=== PATIENT | male | born 1975 | race Caucasian/White ===

== ENCOUNTER 2024-12-13 10:07 | Emergency (ER) | payer OTHER, SELFPAY ==
[2024-12-13 10:10] VITALS: BP 145/93; PULSE 86; RESP 18; TEMP 36.4; O2SAT 98; BMI 33.1
--- NOTE | 2024-12-13 10:31 | ED.GENADULT ---
HPI - General Adult General Chief complaint: Lower Extremity Swelling Stated complaint: swelling left knee Time Seen by Provider: 12/13/24 10:17 History of Present Illness HPI narrative: Patient is a 49-year-old gentleman who comes in today with a 1 day history of a red swollen left knee. He has had no fevers no chills no night sweats. He Has history of gout in the past. Patient has had no recent injuries to his left knee no skin breakdown. He was initially seen in urgent care was sent over for further evaluation. Patient has no symptoms in the right knee and has had no previous pathology in either knee. Pain is moderate and located in the lateral aspect of the left knee.. Related Data Home Medications ?Medication ?Instructions ?Recorded ?Confirmed bupropion HCl 150 mg 24 hr tablet, 150 mg PO DAILY 12/13/24 12/13/24 extended release omeprazole 20 mg capsule,delayed 20 mg PO DAILY 12/13/24 12/13/24 release Allergies Allergy/AdvReac Type Severity Reaction Status Date / Time No Known Drug Allergies Allergy Verified 12/13/24 10:15 Review of Systems Status of ROS: Reports: 10 or more systems reviewed and unremarkable except as noted in History and below Exam Narrative: Exam Narrative: EXAM GENERAL: Patient appears comfortable and well. EYES: No scleral icterus. LYMPH: No supraclavicular or cervical lymphadenopathy. SKIN: Visible skin seen during exam normal or with benign process only. EXT: Mildly swollen warm left knee with no erythema no skin breakdown. Mild effusion noted. HEART: Regular rate and rhythm with no murmurs, rubs, or gallops. LUNGS: Clear to auscultation bilaterally with no crackles or wheezes. ABD: Soft, non tender, non distended. PSYCH: Good eye contact, speech is not pressured. Const: Vital Signs, click to edit/add: Vital Signs - 24 hr 12/13/24 10:10 Temperature 97.6 F Pulse Rate [Pulse Oximeter] 86 Respiratory Rate 18 Blood Pressure [Ri ght Upper Arm] 145/93 H Pulse Oximetry 98 Oxygen Delivery Me thod Room Air Course Vital Signs Vital signs: Initial Vital Signs Temperature 97.6 F 12/13/24 10:10 Temperature Source Temporal Artery Scan 12/13/24 10:10 Pulse Rate 86 12/13/24 10:10 Respiratory Rate 18 12/13/24 10:10 Blood Pressure 145/93 H 12/13/24 10:10 Blood Pressure Mean 110 H 12/13/24 10:10 Blood Pressure Position Sitting 12/13/24 10:10 Pulse Oximetry 98 12/13/24 10:10 Oxygen Delivery Method Room Air 12/13/24 10:10 Vital Signs Temperature 97.6 F 12/13/24 10:10 Pulse Rate 86 12/13/24 10:10 Respiratory Rate 18 12/13/24 10:10 Blood Pressure 145/93 H 12/13/24 10:10 Pulse Oximetry 98 12/13/24 10:10 Oxygen Delivery Method Room Air 12/13/24 10:10 Temperature 97.6 F 12/13/24 10:10 Pulse Rate 86 12/13/24 10:10 Respiratory Rate 18 12/13/24 10:10 Blood Pressure 145/93 H 12/13/24 10:10 Pulse Oximetry 98 12/13/24 10:10 Oxygen Delivery Method Room Air 12/13/24 10:10 Medical Decision Making MDM Narrative Medical decision making narrative: Patient presents with a monoarthritis of the left knee. No signs of systemic infection. I did perform a joint aspiration after explaining the risks and benefits. There was no fluid that we were able to aspirate. I did hold pressure on the puncture site on the lateral aspect of the left knee. I a than bandage the puncture site. This time is unclear whether he has infection versus gout or other cause of monoarthritis. I did treated with with Keflex and prednisone for the next 5-7 days. I recommended ice and follow-up with his primary physician as needed. Discharge Plan Discharge Clinical Impression: Monoarthritis Patient Disposition: Home, Self-Care Condition: Stable Instructions: Knee Pain (ED) Additional Instructions: Ice Prednisone as directed Keflex as directed Follow-up with your doctor as needed Continue change the bandages on puncture site as needed. Activity Level: No Restrictions Discharge Diet: Regular Prescriptions: No Action omeprazole 20 mg capsule,delayed release(DR/EC) 20 mg PO DAILY bupropion HCl 150 mg tablet extended release 24 hr 150 mg PO DAILY Follow Up/Referrals: DARI CLAY DO [Primary Care Provider] - Stand Alone Forms: [facility] Info Instructions
--- OUTSIDE RECORDS SUMMARY | 2024-12-14 17:22 | XMS_ITS | Clinical Summary ---
Author Organization [employer] [facility] Address [address] [place] [address] Care Team Providers Care Psychology Department Chair Name Role Phone Susana Herbert DO Primary Care Provider [phone] Allergies No known active allergies Medications omeprazole (PRILOSEC) 20 mg Delayed-Release capsuleIndicatio ns:Eosinophilic esophagitis Take 1 Capsule (20 mg) by mouth once daily before a meal. 90 Capsule 3 05/30/2024 Active buPROPion (WELLBUTRIN XL) 300 mg Extended-Release tabletIndication s:Recurrent major depression in partial remission Take 1 Tablet (300 mg) by mouth once daily. 90 Tablet 3 05/30/2024 Active Active Problems Problem Noted Date Diagnosed Date Prediabetes 06/04/2023 Obesity, Class II, BMI 35-39.9 09/19/2017 ESEQUIEL 11/21/2004 AHI- 29 10/28/2015 Mixed hyperlipidemia 03/20/2012 Eosinophilic esophagitis 12/07/2009 Overview (12/07/2009): EGD 11/2008 eosinophil esophagitis Depression 08/18/2009 Anxiety 09/10/2007 Encounters Date Type Department Care Team Description 11/17/2024 8:30 AM CDT Office Visit [facility] [address] [place] [address] Rupa Steward, [facility] Mental Health Intake 11/17/2024 Travel 10/14/2024 12:30 PM CDT Office Visit [facility] [address] [place] [address] Keesha Bright, [facility] Mental Health Consultants Visit 10/13/2024 Travel from Last 3 Months Immunizations Immunization Administration Dates Next Due AMB Influenza, IIV3 (Age >=3 years)(Flu Clinic Only) 06/15/2011 COVID-19 VACCINE SPIKEVAX (M ODERNA 50MCG/0.5ML) 12YO+ PFS 05/30/2024,06/04/2023 COVID-19 vaccine (Moderna 100mcg/0.5mL) PF, MDV 12/23/2020,11/18/2020 COVID-19 vaccine (Moderna Aleksandr sugey 50mcg/0.25mL) PF, MDV 08/23/2021 COVID-19 vaccine (Pfizer-Bio NTech 30mcg/0.3mL) 12YO+ BIVALENT PF, MDV 04/25/2022 INFLUENZA, IIV3 PF (AGE >= 6 MO) 05/30/2024 Influenza A (H1N1), Inactivated 07/30/2009,06/04 Influenza, IIV3 (Age 6-35 mos) 05/22/2013,2010 Influenza, IIV3 (Age >=3 years) 05/06/2019,04/13 Influenza, IIV4 06/04/2023,,08/10/2021,2018,04/30/2014 Tdap 05/30/2024,04/08/2014,03/11/2010 Family History Medical History Relation Name Comments Heart Disease Father MA - born [birth year] Diabetes Maternal Grandfather Diabetes Maternal Uncle Other Mother overwt - born 1 [birth year] Other Other negative for de pression Relation Name Status Comments Father Maternal Grandfather Maternal Uncle Mother Other Social History Tobacco Use Types Packs/Day Years Used Date Smoking Tobacco: Never Smokeless Tobacco: Never Tobacco Cessation:Counseling Given: Yes Alcohol Use Standard Drinks/Week Comments Yes 3 (1 standard drink = 0.6 oz pur e alcohol) once a week PHQ-2 Answer Date Recorded PHQ-2 TOTAL SCORE 2 11/17/2024 Social Connections Answer Date Recorded Do you often feel lonely or isolated from those around you? 0 05/30/2024 Financial Resource Strain Answer Date R ecorded Difficulty of Paying Living Expenses 3 05/30/2024 Difficulty of Paying Living Expenses Not on file 05/30/2024 Food Insecurity Answer Date Recorded Do you worry your food will run out before you are able to buy more? 1 05/30/2024 Transportation Needs Answer Date Record ed Does lack of transportation keep you from medica l appointments? 1 05/30/2024 Does lack of transportation keep you from work, meetings or getting things that you need? 1 05/30/2024 Housing Stability Answer Date Recorded What is your housing situation today? 1 05/30/2024 Utilities Answer Date Recorded Do you have trouble paying f or utilities (for example, heat, electricity, water, phone)? 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 Not on file Not on f ile Obstetrics History Last Filed Vital Signs Vital Sign Reading Time Taken Comments Blood Pressure 139/93 05/30/2024 8:12 AM CDT Pulse 72 05/30/2024 7:29 AM CDT Temperature 36.8 C (98.2 F) 02/26/2020 11:35 AM CDT Respiratory Rate 16 09/06/2022 8:40 AM CUFF SLITTER Oxygen Saturation 98% 05/30/2024 7:29 AM CDT Inhaled Oxygen Concentration - - Weight 101 kg (222 lb 11.2 oz) 05/30/2024 7:29 A M CDT Height 182.4 cm (5' 11.81) 05/30/2024 7:29 AM C DT Body Mass Index 30.36 05/30/2024 7:29 AM CDT Plan of Treatment Health Maintenance Due Date Last Done Comments BMI (ht and wt on same day) for age 18+ 05/30/2025 05/30/2024, 06/04/2023, 05/18/2022, Additional history exists Depression screening for age 12+ 11/17/2025 11/17/2024 Lipids for age 45-75 05/30/2029 05/30/2024, 06/04/2023, 05/18/2022, Additional history exists Colonoscopy through age 75 09/06/203209/06, 09/06/2022, 09/06/2022 Tetanus booster 05/30/2034 05/30/2024, 03/30, 03/11/2010, Additional history exists Hepatitis C screening for age 18-79 Completed 05/18/2022 HIV for age 15-65 Completed 06/04/2023 COVID-19 vaccine series Completed 05/30/20 24, 06/04/2023, 04/25/2022, Additional history exists Influenza Vaccine Completed 05/30/2024, , 04/25/2022, Additional history exists Tdap Completed 05/30/2024, 03/30, 03/11/2010 Pneumococcal series for age 6-49 Aged Out No longer eligible based on patient's age to complete this topic Procedures Procedure Name Priority Date/Time Associated Diagnosis Comments LIPID PANEL W REFLEX MEASURED LDL Routine 05/30/2024 8:44 AM CDT Mixed hyperlipidemia ANTI HIV 1/2 Routine 06/04/2023 11:00 AM CUFF SLITTER Screening for HIV (human immunodeficiency virus) COLONOSCOPY SCREENING Routine 09/06/2022 7:21 AM CUFF SLITTER Screening for colon cancer ANTI HCV Routine 05/18/2022 8:54 AM CDT Need for hepatitis C screening test from Last 3 Months or Most Recently Relevant to Health Maintenance Results * (ABNORMAL) LIPID PANEL W REFLEX MEASURED LDL (05/30/2024 8:44 AM CDT) CHOLESTEROL, TOTAL 173 <200 mg/dL [facility] HDL CHOLESTEROL 38(L) > OR = 40 mg/dL [facility] TRIGLYCERIDES 204(H) <150 mg/dL [facility] Comment: If a non-fasting specimen was collected, consider repeat triglyceride testing on a fasting specimen if clinically indicated. Jemima et al. J. of Clin. Lipidol. 2015;9:129-169. LDL-CHOLESTEROL 103(H) mg/dL (calc) [facility] Comment: Reference range: <100 Desirable range <100 mg/dL for primary prevention; <70 mg/dL for patients with CHD or diabetic patients with > or = 2 CHD risk factors. LDL-C is now calculated using the Rex-Gomez calculation, which is a validated novel method providing better accuracy than the Friedewald equation in the estimation of LDL-C. Rex SS et al. SITA. 2013;310(19): 9906-1348 (http://education.Goodie Goodie App/faq/LAN856) CHOL/HDLC RATIO 4.6 <5.0 (calc) [facility] NON HDL CHOLESTEROL 135(H) <130 mg/dL (calc) [facility] Comment: For patients with diabetes plus 1 major ASCVD risk factor, treating to a non-HDL-C goal of <100 mg/dL (LDL-C of <70 mg/dL) is considered a therapeutic option. Blood BLOOD SPECIMEN / Unknown 05/30/2024 8:44 AM CDT 05/30/2024 8:45 AM CDT Narrative [facility] - 05/31/2024 4:35 AM CDT FASTING:UNKNOWN FASTING: UNKNOWN [employer] DO CHEMISTRY Final Result [employer] [facility] [address] [place] [address], [employer] [address] * ANTI HIV 1/2 [00367.0] (06/04/2023 11:00 AM CUFF SLITTER) HIV-1/HIV-2 SCREEN Non-Reacti ve Non-Reacti ve 06/04/2023 4:25 PM CUFF SLITTER [facility] [employer] Comment:HIV-1 p24 and HIV-1/ HIV-2 Ab Not Detected. Blood BLOOD SPECIMEN / Unknown Venipuncture / Unknown 06/04/2023 11:00 AM CUFF SLITTER 06/04/2023 11:01 AM CUFF SLITTER [employer] DO SEND OUTS Final Result Performing Organization Address City/[facility]/ZIP Co de Phone Number [facility] [address] [place] [address], [place] * COLONOSCOPY (09/06/2022 7:35 AM CUFF SLITTER) 09/06/2022 7:35 AM CUFF SLITTER Narrative Transcriptions Rex Macias MD - 09/06/2022 8:26 AM CST Patient Name: Devin Royal Procedure Date: 09/06/2022 Gender: Male Date of : 1975 Admit Type: Outpatient Procedure: Colonoscopy Proceduralist: Rex Macias MD , Susan Lin (Nurse), Arabella Gonzales RN (Nurse) Referring MD: Susana Herbert Indications/Pre-Op Diagnosis: Screening for colorectal malignant neoplasm, This is the patient's first colonoscopy Medications: Fentanyl 100 micrograms IV, Midazolam 4 mgIV, The level of sedation administered wasmoderate Procedure Description: The patient had risks, benefits and alternatives explained to andgave informed consent. The patient had a stable cardiopulmonary status and judged an adequate candidate for conscious sedation. The endoscope [id number] was passed through the anus andadvanced to the cecum, identified by appendiceal orifice and ileocecal valve.The colonoscopy was performed without difficulty. The patient toleratedthe procedure well. The quality of the bowel preparation was good. The ileocecal valve, appendiceal orifice, and rectum were photographed. Complications: No immediate complications. Estimated Blood Loss & Specimen: Estimated blood loss: none. Specimen collected - None Findings: The perianal and digital rectal examinations were normal. The entire examined colon appeared normal on direct and retroflexion views. Impressions/Post-Op Diagnosis: - The entire examined colon is normal on direct and retroflexionviews. - No specimens collected. Recommendation: - Patient has a contact number available for emergencies. The signsand symptoms of potential delayed complications were discussed with the patient. Return to normal activities tomorrow. Written discharge instructions were provided to the patient. - Resume previous diet. - Continue present medications. - Repeat colonoscopy in 10 years for screening purposes. Moderate Sedation: A time out was performed before the procedure. Moderate (conscious) sedation was administered by the endoscopy nurse and supervised bythe endoscopist. The following parameters were monitored: oxygensaturation, heart rate, blood pressure, EKG, CO2, respiratory rate, adequacy of pulmonary ventilation and reponse to care. Please refer to the patient's medical record flowsheets and nursing notes for moderate sedation details. Total physician intraservice time was 13 minutes. Rex Macias MD 09/06/2022 8:26:29 AM This report has been signed electronically. Note Initiated On: 09/06/2022 7:35 AM Procedure Code(s): --- Professional --- 68095, Colonoscopy, flexible; diagnostic, including collection of specimen(s) bybrushing or washing, when performed (separateprocedure) Diagnosis Code(s): --- Professional --- Z12.11, Encounter for screening formalignant neoplasm of colon CPT copyright 2020 [employer]. All rights reserved. The codes documented in this report are preliminary and upon meat processor reviewmay be revised to meet current compliance requirements. Scope In: 8:12:59 AM Scope Withdrawal Time 0 hours 6 minutes 1 second Scope Out: 8:22:21 AM us Rex Macias MD PROCEDURE ORD Final Res ult * ANTI HCV (05/18/2022 8:54 AM CDT) HEPATITIS C ANTIBODY Non-React wil Non-React wil 05/18/2022 6:40 PM CDT [facility] Comment:Antibodies to HCV no t detected; does not exclude the possibility of exposure to HCV. Blood BLOOD SPECIMEN / Unknown Venipuncture / Unknown 05/18/2022 8:54 AM CDT 05/18/2022 8:55 AM CDT us Susana Herbert DO SEND OUTS Final Result [facility] [address] [place] [address], [place] from Last 3 Months or Most Recently Relevant to Health Maintenance Insurance [facility] [id number] Care Teams Psychology Department Chair Relationship Specialty Start Date End Date Susana Herbert [place] [address] PCP - General Family Practice 05/18/22
--- OUTSIDE RECORDS SUMMARY | 2024-12-14 17:22 | XMS_ITS | Clinical Summary ---
Author Organization [facility] Address [address] [place] [address] Care Team Providers Care Dirt Contractor Name Role Phone Sarah Vicente PA-C Primary Care Provider [phone] Source Comments You are receiving this document as you are listed as the primary care provider,follow-up provider, or the patient has been referred to you for consultation.This is in compliance with the Medicare andOhiohealth [facility] Hospitalcaid EHR Incentive Program,which states Providers who transition their patient to another setting of careor provider of care or refers their patient to another provider of care shouldprovide summary care record for each transition of care or referral. [facility] Allergies No known active allergies Medications OMEPRAZOLE OR Active buPROPion (AKA WELLBUTRIN XL) 150 MG 24 hour release tabletIndicatio ns:Depression,A nxiety (HRC) Take 1 Tab by mouth daily. 90 Tab 1 1 Active Additional Information Patient not taking.Reported on 07/15/2024 buPROPion (WELLBUTRIN XL) 300 MG 24 hour release tablet Take 1 Tablet (300 mg) by mouth daily. 4 Active Active Problems Problem Noted Date Diagnosed Date Depression 08/18/2009 Dysphagia 08/18/2009 Lumbar pain 09/10/2007 Anxiety 09/10/2007 Encounters Date Type Department Care Team Description 11/22/2024 Telephone [facility] [address] [place] [phone] Bleinda Smith DDS Short Notice Cancel 10/15/2024 2:50 PM CDT Office Visit [facility] [address] [place] [address] Belinda Smith DDS Problem Focused Exam (UR/LR sensitivity) 10/13/2024 Telephone [facility] [address] [place] [address] Unknown, Physician EMPF from Last 3 Months Immunizations Immunization Administration Dates Next Due Flu Vac (3+ yrs) 04/13/2009 H1n1 Miv Sanofi 3+ Yr (Injected) 07/30/2009 Influenza IIV4 (Quadrivalent) 0.5mL (08218) 1002/2019 Moderna Monovalent 12+ 12/23/2020,11/18/2020 Tdap 03/11/2010 Family History Medical History Relation Name Comments Coronary Artery Disease Father [place] @ 62 Diabetes Maternal Uncle Cancer, Colon Paternal Grandfather Coronary Artery Disease Paternal Grandmother Amblyopia/Strabismus Negative Family History Cataract Negative Family History Glaucoma Negative Family History Macular Degeneration Negative Family History Retinal Detachment Negative Family History Relation Name Status Comments Father Alive Mother Alive Daughter 1 Alive Daughter 2 Alive Daughter 3 Alive Daughter 4 Alive Daughter 5 Alive Maternal Uncle Paternal Grandfather Paternal Grandmother Social History Tobacco Use Types Packs/Day Years Used Date Smoking Tobacco: Former Cigarettes Q uit: 1989 Smokeless Tobacco: Never Tobacco Cessation:Counseling Given: Not Answered Alcohol Use Standard Drinks/Week Comments Yes 5.8 (1 standard drink = 0.6 oz p ure alcohol) Sex and Gender Information Value Date Recorded Sex Assigned at Not on file Legal Sex Male 5:52 AM CDT Gender Identity Not on file Sexual Orientation Not on file 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 Not on file Last Filed Vital Signs Vital Sign Reading Time Taken Comments Blood Pressure 116/78 05/24/2018 12:09 PM CDT Pulse 70 04/17/2024 8:10 AM CDT Temperature 36.6 C (97.8 F) 08/09/2010 9:05 AM OPERATING SYSTEMS SPECIALIST Respiratory Rate 16 08/09/2010 9:05 AM OPERATING SYSTEMS SPECIALIST Oxygen Saturation - - Inhaled Oxygen Concentration - - Weight 100.7 kg (222 lb) 07/15/2024 9:05 AM OPERATING SYSTEMS SPECIALIST Height 182.9 cm (6') 07/15/2024 9:05 AM OPERATING SYSTEMS SPECIALIST Body Mass Index 30.11 07/15/2024 9:05 AM OPERATING SYSTEMS SPECIALIST Plan of Treatment Upcoming Encounters Date Type Department Care Team (Late st Contact Info) Description 01/19/2025 7:10 AM CDT Appointment [facility] [address] [place] [phone] Conchis Cruz, DDS [address] [place], [place] [phone] 02/03/2025 12:30 PM CDT Appointment [facility] [address] [place] [phone] Conchis Cruz, DDS [address] [place], [place] [phone] 04/13/2025 1:50 PM CDT Appointment [facility] [address] [place] [phone] [place], [facility] [address] [place], [place] [phone] Health Maintenance Due Date Last Done Comments Colon Cancer Screening Plan Due 1975 Hep C Screening (Preventive Services) 1975 Adult Preventive Visit 1994 HepB Vaccine (1) 1995 Cholesterol 2011 Zoster/Shingles Vaccine (1 of 2) 2026 Diabetes Screening- (based on age and BMI) 05/30/2027 05/30/2024, 06/04/2023, 05/18/2022 DTaP/Tdap/Td Vaccine (4 - Tdap) 05/30/2034 05/30/2024, 04/08/2014, 03/11/2010 HIV Screening (Preventive Services) Completed 06/04/2023 COVID-19 Vaccine Completed 05/30/2024, 12/2022, 04/25/2022, Additional history exists Influenza Vaccine Completed 05/30/2024, , 04/25/2022, Additional history exists HepA Vaccine Aged Out No longer eligi ble based on patient's age to complete this topic Hib Vaccine Aged Out No longer eligi ble based on patient's age to complete this topic IPV (Polio) Vaccine Aged Out No longe r eligible based on patient's age to complete this topic MCV4 Vaccine Aged Out No longer eligi ble based on patient's age to complete this topic Meningococcal B Vaccine Aged Out No l onger eligible based on patient's age to complete this topic Pneumococcal Vaccine Aged Out No long er eligible based on patient's age to complete this topic Procedures Procedure Name Priority Date/Time Associated Diagnosis Comments RLEY-[id number] Routine 10/15/2024 2:50 PM C DT Incomplete fracture of tooth Cracked tooth syndrome 4 FILM-PERIAPICAL FIRST Routine 10/15/2024 2:50 P M CDT Incomplete fracture of tooth Cracked tooth syndrome LIMITED ORAL EVALUATION Routine 10/15/2024 2:50 P M CDT Incomplete fracture of tooth Cracked tooth syndrome from Last 3 Months Insurance SELF INSURED HP COMM HP FAMILY DENTAL SELF INSURED SELF INSURED Care Teams Dirt Contractor Relationship Specialty Start Date End Date Sarah Vicente PA-C [address] [place] [address] PCP - General 10/14/09
--- OUTSIDE RECORDS SUMMARY | 2024-12-14 17:22 | XMS_ITS | Encounter Summary ---
Author Organization [facility] Address [address] [place] [id number] Care Team Providers Care Furniture Stainer Name Role Phone Sarah Vicente PA-C Primary Care Provider [phone] Reason for Visit * Reason Comments Short Notice Cancel Encounter Details Date Type Department Care Team (Late st Contact Info) Description 11/22/2024 Telephone [facility] [address] [phone] Belinda Smith DDS [id number] [place] [id number] Short Notice Cancel Social History Tobacco Use Types Packs/Day Years Used Date Smoking Tobacco: Former Cigarettes Q uit: 1989 Smokeless Tobacco: Never Alcohol Use Standard Drinks/Week Comments Yes 5.8 (1 standard drink = 0.6 oz p ure alcohol) Sex and Gender Information Value Date Recorded Sex Assigned at Not on file Legal Sex Male 5:52 AM CDT Gender Identity Not on file Sexual Orientation Not on file 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 Will be here in 20mins. Dr. Smith confirmed she would prefer pt to RS since she won't have enough time to prep pt's crown. The call dropped and was not able to RS pt. Muriel Plasencia 11/22/2024, 8:02 AM documented in this encounter Plan of Treatment Upcoming Encounters Date Type Department Care Team (Late st Contact Info) Description 01/19/2025 7:10 AM CDT Appointment [facility] [address] [place] [phone] Conchis Cruz DDS [address] [place], [place] [id number] 02/03/2025 12:30 PM CDT Appointment [facility] [address] [place] [phone] Conchis Cruz DDS [address] [place], [place] [id number] 04/13/2025 1:50 PM CDT Appointment [facility] [address] [place] [phone] [place], [facility] [address] [place] [address] documented as of this encounter Visit Diagnoses Not on filedocumented in this encounter Care Teams Furniture Stainer Relationship Specialty Start Date End Date Sarah Vicente PA-C [address] [place] [address] PCP - General 10/14/09 documented as of this encounter
== END 2024-12-13 10:43 | disposition home or self-care (01) ==
LOC: ED 10:36
PROVIDERS: Emergency Provider Internal Medicine; PCP Student in an Organized Health Care Education/Training Program
DX: M13.162 Monoarthritis, not elsewhere classified, left knee (principal)
CPT/HCPCS: 20610; 99283